=== PATIENT | female | born 1985 | race Caucasian/White ===

== ENCOUNTER 2017-02-25 06:26 | Emergency (ER) | payer OTHER ==
--- NOTE | 2017-02-25 14:22 | ER ---
ADMIT: 02/25/2017 RM/LOC: ER [facility] MR#: [id number] [address] [id number] ANASTASIA LERNER [address] [place] [address] Emergency Room Report SEX: F AGE: 32 : 1985 DATE: 02/25/2017 TIME: 0626 hours. Please refer to my T-sheet for complete H and P. Briefly, patient comes in with pelvic/abdominal pain. It has been going on for about 3 days, right lower quadrant. She rates it 9/10. She says it feels like her ovarian cyst, she did have surgery for in the past. She is sexually active but it has been quite a long time. She has no vaginal discharge. PHYSICAL EXAMINATION: VITAL SIGNS: Stable. ABDOMEN: Tender in the right lower quadrant, a little below McBurney's point. No rebound or guarding. SKIN: No rash. EMERGENCY DEPARTMENT COURSE: CBC was normal except white count 10.8. Chemistries normal. Urine negative. UA was normal. Ultrasound showed no ovarian cyst. Normal ovarian flow. No abnormalities noted. Could not visualize the appendix. I pushed on her again, she still had pain right around McBurney's point. We did a CT scan, it was essentially negative. I gave her Toradol, Zofran, and morphine, her pain was improved. She was ready for discharge. She did not want anything stronger. ASSESSMENT: Abdominal pelvic pain. PLAN: Follow up with Dr. Yanni Lopez, return if worse. Tylenol and Motrin. Bao Petty MD/ ryanl JOB #: [id number] CC: Tomas Davis MD, Attending Physician Mera Lopez, Family Physician
== END 2017-02-25 11:15 | disposition home or self-care (01) ==
LOC: ER 06:26
DX: R10.2 Pelvic and perineal pain (principal)